=== PATIENT | male | born 2005 | race Caucasian/White ===

== ENCOUNTER 2023-01-07 00:47 | Emergency (ER) | payer OTHER, MEDICAID, SELFPAY ==
[2023-01-07 00:48] VITALS: BP 144/89; PULSE 76; RESP 17; TEMP 36.2; O2SAT 97; BMI 41.6
--- NOTE | 2023-01-07 01:01 | EDS_ITS ---
HPI History of Present Illness Chief Complaint: Chest Pain Informant: patient Onset/Context/Timing Onset: Days Activity at onset: gradual Timing: Continuous Quality: Positive for Pressure and Tightness Location: Substernal and Left Parasternal Worsened By: Breathing Relieved By: Nothing Associated Symptoms: Positive for Nausea, Acid Reflux and Palpitations; Negative for Vomiting, Diaphoresis, Dyspnea, Cough, Fever or Lightheadedness Narrative Narrative: Patient presents with chest pain that has been constant for the past 2 days. Patient states it came on gradually. Patient states it has been constant. Patient describes it as pressure and stabbing. Patient states is over the substernal and left parasternal areas. Patient states it is worse with deep breathing. Patient states nothing makes it better. Patient admits to some nausea but denies any vomiting. Patient admits to some acid reflux symptoms. Patient also admits to some palpitations. CVD Risk Factors: Positive for Family History 1' </=55; Negative for Hypertension, Diabetes, Hypercholesterolemia or Smoking PE Risk Factors: Negative for Recent Travel/Surgery, Recent Immobilization, Prior DVT or PE, Cancer or OCP + Smoking + >/=35 PFSH PFSH Medical History no medical history no medical history Home Medications omeprazole 20 mg capsule,delayed release 20 mg PO DAILY #30 CAPSULES 01/07/23 [Rx Last Taken Unknown] Allergy/AdvReac Type Severity Reaction Status Date / Time No Known Allergies Allergy Verified 01/07/23 01:18 Surgical History no surgical history no surgical history Social History Smoking Status: Never smoker ROS ROS ED Constitutional Constitutional ED: Denies chills or fever(s) Eyes Eyes: Denies blurry vision or change in vision ENT ENT ED: Denies rhinorrhea or sore throat Cardiovascular Cardiovascular: Reports chest pain and palpitations Respiratory/Chest Respiratory/Chest: Denies cough or dyspnea Gastrointestinal Gastrointestinal: Reports nausea; Denies abdominal pain or vomiting Genitourinary Genitourinary ED: Denies dysuria or hematuria Musculoskeletal Musculoskeletal: Reports neck pain; Denies back pain Integumentary Denies abscess or rash Neurologic Neurologic: Reports headache(s); Denies weakness Allergic/Immunologic Allergic/Immunologic ED: Denies mouth swelling or urticaria EXAM Physical Exam Const Vital Signs: 01/07/23 00:48 01/07/23 01:06 Temperature 97.2 F L Temperature Source Temporal Pulse Rate 76 Respiratory Rate 17 Blood Pressure 144/89 H Blood Pressure Mean 107 Pulse Ox 97 99 Oxygen Delivery Method Room Air Room Air Positive well nourished, well developed and obese General Appearance ED: well developed Nutritional Appearance: obese HEENT normocephalic and atraumatic Eyes PERRL and EOMs intact bilaterally Neck supple and no JVD Chest Wall palpation of chest normal Resp normal respiratory effort and clear to auscultation bilaterally Effort and Inspection: Negative for respiratory distress Cardio regular rate, regular rhythm and no murmurs GI normal to inspection, nondistended, normoactive bowel sounds, soft to palpation, non-tender and non-distended Extremity normal to inspection General Extremety ED: Negative for edema or tenderness General Extremity: Negative for edema Neuro oriented x3, CN's II-XII intact bilaterally and no sensory deficits noted Sensorium / Orientation: awake and alert Motor Exam: strength 5/5 throughout Psych mental status grossly normal Heart Score History: Slightly/Non-Suspicious ECG: Normal Age: </= 45 years Risk Factors: 1 or 2 Risk Factors Troponin: </= Normal Limit Score: 1 MDM MDM MDM Narrative Medical decision making narrative: Parental diagnosis includes cardiac dysrhythmia, cardiac ischemia, musculoskeletal pain, acid reflux, pneumonia, pneumothorax, and esophageal spasm. Patient has a Wells score of 0. Patient has no PE risk factors. Patie nt is PERC negative. I do not feel this is from a pulmonary embolism. EKG will be obtained to assess for cardiac dysrhythmia and cardiac ischemia. Chest x-ray will be obtained to assess for pneumonia and pneumothorax. CBC will be obtained to assess for leukocytosis and anemia. Basic metabolic profile will be obtained to assess for electrolyte abnormality and renal function. High sensitive tr oponin will be obtained to assess for cardiac ischemia. Lab Data Attestation: I reviewed the patient's lab results. Lab results narrative: CBC was reviewed and showed a slight leukocytosis of 12.1. Remainder is within normal limits. Basic metabolic profile was reviewed and was essentially within normal limits. High-sensitivity troponin was reviewed and was normal at 4. Labs: Laboratory Results - last 24 hr 01/07/23 01/07/23 01:11 01:11 WBC 12.1 H RBC 5.48 Hgb 16.0 Hct 49.5 MCV 90.3 MCH 29.2 MCHC 32.3 RDW Std Deviation 42.5 RDW Coeff of Jenn 12.9 Plt Count 275 MPV 11.7 Immature Gran % (Auto) 0.500 Neut % (Auto) 62.4 Lymph % (Auto) 27.9 Mccone % (Auto) 7.1 Eos % (Auto) 1.4 Baso % (Auto) 0.7 Absolute Neuts (auto) 7.6 Absolute Lymphs (auto) 3.38 Nucleated RBC % 0 Sodium 134 L Potassium 4.7 Chloride 108 H Carbon Dioxide 21.0 Anion Gap 5 BUN 9 Creatinine 0.73 Estim Creat Clear Calc 173.35 Est GFR (MDRD) Af Amer 178 Est GFR (MDRD) Non-Af 147 BUN/Creatinine Ratio 12.3 Glucose 93 Calcium 8.6 Troponin I High Sens 4 Radiography Diagnostic Testing: Clinical Impression(s) from Imaging Studies Chest X-Ray 01/07/23 01:07 IMPRESSION: No radiographic evidence of acute cardiopulmonary disease. Electronically Signed: Ze Knight MD at 2:04 EDT , PA and lateral chest x-ray was obtained. There are 2 views. On my independent interpretation, lung marquez are clear. There is normal cardiac silhouette. Bony thorax is normal. There is no acute process noted. Radiologist also interpreted the x-ray and agrees. EKG Initial EKG: Attestation: I personally reviewed and interpreted this EKG as follows: Interpretation: Sinus Rhythm (59) and No Acute Injury Pattern Comments: EKG was obtained. On my independent interpretation, it showed a normal sinus rhythm with a rate of 59. CT interval, QRS interval, and QTc intervals were all normal. [place] was normal. There are no acute ST or T wave changes. Prior EKG tracings: not available for review Prior: No Prior Treatment and Re-Evaluation :: Patient was given a GI cocktail here. Patient states he was feeling better after this. Patient was given a prescription for omeprazole. Patient was advised that this may be reflux symptoms that is causing the pain in his chest. Patient has a HEART score of 1. Patient was advised that this is a low risk for acute cardiac event. Patient was instructed to follow-up with his primary care physician in 5 to 7 days. Patient understood and was agreeable with the plan. All questions were answered. Discharge Plan Triage Chief Complaint: Chest Pain ED Provider: Chato Chong Dx/Rx/DC Orders Clinical Impression: Chest pain, Gastroesophageal reflux disease Instructions: ED Chest Pain, Uncertain Cause, ED GERD (Adult) Prescriptions: New omeprazole [omeprazole] 20 mg capsule,delayed release(DR/EC) 20 mg PO DAILY Qty: 30 0RF Stand Alone Forms: ED Work / School Excuse Primary Care Provider: Don Herrera Referrals: Don Herrera MD [Primary Care Provider] - 5-7 Days Disposition Disposition: Home, Self Care
[2023-01-07 01:06] VITALS: O2SAT 99
--- NOTE | 2023-01-07 01:06 | EKG12_ITS ---
Test Reason : PAIN Blood Pressure : / mmHG Vent. Rate : 059 BPM Atrial Rate : 059 BPM P-R Int : 148 ms QRS Dur : 096 ms QT Int : 384 ms P-R-T Axes : -02 037 -01 degrees QTc Int : 380 ms Sinus bradycardia with sinus arrhythmia Otherwise normal ECG Confirmed by JELLY LOPEZ, AKOSUA ([id number]), industrial editor YA HAIDER ([id number]) on 01/12/2023 6:56:25 AM Referred By: Confirmed By:TEAGAN REAVES MD
--- NOTE | 2023-01-07 01:07 | RAD_ITS ---
INDICATION: chest pain EXAMINATION/TECHNIQUE: X-RAY - XR Chest 2 Views COMPARISON: None. FINDINGS: LINES/DEVICES: None. LUNGS: No pulmonary edema or focal airspace consolidation. No sizable pleural effusion. No pneumothorax detected. Mildly elevated right hemidiaphragm. MEDIASTINUM AND CARDIOVASCULAR STRUCTURES: Heart size within normal limits. Mediastinal contours unremarkable. BONES AND SOFT TISSUES: No acute findings. RAD/Chest PA and Lateral IMPRESSION: No radiographic evidence of acute cardiopulmonary disease. Electronically Signed: Ze Knight MD at 2:04 EDT ,
[2023-01-07] MEDS: Mag Hydrox/Al Hydrox/Simeth 30 ML UDC PO (01:18)
[2023-01-07 01:22] LABS: Absolute Lymphocyte Count 3.38 X10^3/uL (0.83-4.51); Absolute Neutrophil Count 7.6 X10^3/uL (2.0-7.7); Basophil# 0.08 X10^3/uL; Basophil% 0.7 % (0-1); Eosinophil# 0.17 X10^3/uL; Eosinophils% 1.4 % (0-5); Hematocrit 49.5 % (40-54); Lymphocyte # 3.38 X10^3/ul (0.83-4.51); Lymphocyte % 27.9 % (19-41); Mean Corp Hgb Conc 32.3 g/dL (32-36); Mean Corpuscular Hgb 29.2 pg (27.0-32.0); Mean Corpuscular Volume 90.3 fL (80-94); Mean Platelet Vol. 11.7 fl (6.2-12.0); Monocyte# 0.86 X10^3/uL; Monocyte% 7.1 % (0-10); NRBC Flagged by Analyzer 0 % (0-5); Neutrophil # 7.57 X10^3/uL (2.7-7.7); Neutrophil % 62.4 % (47-70); Platelet Count 275 K/mm3 (150-450); RBC Distribution Width CV 12.9 % (11.6-14.6); RBC Distribution Width SD 42.5 fl (35.1-43.9); Red Blood Count 5.48 M/mm3 (4.6-6.2); White Blood Count 12.1 K/mm3 (4.4-11.0)
[2023-01-07 01:56] LABS: Anion Gap 5 (5-15); BUN 9 mg/dL (7-18); BUN/Creat Ratio 12.3 RATIO (10-20); Calcium,Total 8.6 mg/dL (8.5-10.1); Chloride 108 mmol/L (98-107); Creatinine, Serum 0.73 mg/dL (0.70-1.30); EST Glomerular Filtration Rate 147 mL/min (>60); Est Glom Filt Rate - Afr Amer 178 mL/min (>60); Estimated Creatinine Clearance 173.35 ml/min; Glucose 93 mg/dL (74-106); Potassium 4.7 mmol/L (3.5-5.1); Sodium Level 134 mmol/L (136-145); Troponin-I HS 4 pg/mL (3.0-78.0)
[2023-01-07 02:17] VITALS: BP 132/74; PULSE 74; RESP 15; O2SAT 99
== END 2023-01-07 02:36 | disposition home or self-care (01) ==
PROVIDERS: Emergency Provider Emergency Medicine; PCP Family Medicine; Visit Provider Emergency Medicine
DX: K21.9 Gastro-esophageal reflux disease without esophagitis (principal); R51.9 Headache, unspecified; E66.9 Obesity, unspecified; Z79.899 Other long term (current) drug therapy
CPT/HCPCS: 71046; 80048; 84484; 85025; 93005; 99283